=== PATIENT | male | born 1995 | race Caucasian/White ===

== ENCOUNTER 2016-07-24 19:07 | Emergency (ER) | payer OTHER ==
[2016-07-24 19:14] VITALS: RESP 16; TEMP 97.9
--- NOTE | 2016-07-24 19:15 | EDPHY ---
H & P Time Seen by Provider: 07/24/16 19:14 HPI/ROS: CHIEF COMPLAINT: Head injury HISTORY OF PRESENT ILLNESS: The patient is a 20 year old male presenting with head injury that occurred at 6pm this evening. The patient was playing [employer] and fell backwards. He hit the back of his head on the ice. He did not lose consciousness. He was able to continue playing, but after the game began to feel disoriented. He states he is unable to think well or concentrate due to confusion. He has some dizziness and slight head pressure. The patients friend thought he was having difficulty ambulating. The patient denies nausea or vomiting. REVIEW OF SYSTEMS: A comprehensive 10 point review of systems is otherwise negative aside from elements mentioned in the history of present illness. Past Medical/Surgical History: Denies. Social History: [employer] student. Smoking Status: Never smoked Physical Exam: General Appearance: Alert, pleasant Head: Atraumatic, no swelling or tenderness Eyes: Pupils equal and round, no conjunctival pallor or injection ENT, Mouth: No facial bony tenderness, Mucous membranes moist Neck: No midline tenderness, range of motion without pain Respiratory: Lungs are clear to auscultation Cardiovascular: Regular rate and rhythm Gastrointestinal: Abdomen is soft and non-tender Back: No tenderness Neurological: Alert, oriented x3, cranial nerves II through XII intact, motor 5 /5, sensory intact to light touch, normal gait Skin: Warm and dry, no rash Extremities: Normal inspection Psychiatric: Mood and affect normal, Difficulty concentrating, unable to perform serial 7's. Constitutional: Initial Vital Signs Temperature (C) 36.6 C 07/24/16 19:11 Heart Rate 90 07/24/16 19:11 Respiratory Rate 16 07/24/16 19:11 Blood Pressure 145/110 H 07/24/16 19:11 O2 Sat (%) 98 07/24/16 19:11 O2 Delivery Mode Room Air Allergies/Adverse Reactions: Cephalosporins Allergy (Verified 07/24/16 19:10) Penicillins Allergy (Verified 07/24/16 19:10) Home Medications: Medication Instructions Recorded NK [No Known Home Meds] 07/24/16 Medical Decision Making ED Course/Re-evaluation: Patient presents with headache and difficulty concentrating after a closed head injury. Plan for CT head. CT scan results discussed with the patient. Closed head injury precautions given. No evidence of other injuries. Differential Diagnosis: Differential diagnosis includes though it is not limited to fracture, intracranial hemorrhage, pneumothorax, hemothorax, intra-abdominal hemorrhage. Departure - Departure Disposition: Home, Routine, Self-Care Clinical Impression: Concussion Qualifiers: Encounter type: initial encounter Loss of consciousness presence/duration: without LOC Qualified Code(s): S06.0X0A - Concussion without loss of consciousness, initial encounter Condition: Good Instructions: Concussion (ED) Additional Instructions: Take 600mg Ibuprofen every 6-8 hours as needed for headache. Drink plenty of fluids. If you continue to have symptoms after 1 week followup with the concussion specialist, Dr. Maldonado. Referrals: Estefanía Maldonado MD [Medical Doctor] - As per Instructions (Concussion specialist) Report Scribed for: eYn Serrano Report Scribed by: Michaelle Ron Date of Report: 07/24/16 Time of Report: 19:15 Physician Review and Approval Statement: 07/24/16 19:15 Portions of this note were transcribed by a director medical. I personally performed the history, physical exam, and medical decision-making; and confirmed the accuracy of the information in the transcribed note.
[2016-07-24 20:07] VITALS: BP 141/99; PULSE 94; O2SAT 95
== END 2016-07-24 20:06 | disposition home or self-care (01) ==
DX: S06.0X0A Concussion without loss of consciousness, initial encounter (principal); W01.198A Fall on same level from slipping, tripping and stumbling with subsequent striking against other object, initial encounter; Y99.8 Other external cause status; Y93.89 Activity, other specified